=== PATIENT | female | born 1955 | race Caucasian/White ===

== ENCOUNTER 2016-07-17 09:22 | Emergency (ER) | payer BC ==
[~2016-07-17] VITALS: Ht 175.3 cm; Wt 74.8 kg
[~2016-07-17 09:22] MED LIST: ASPI325T4 PO; HYDR-965 PO
[2016-07-17 09:25] VITALS: BP 135/74
[2016-07-17] MEDS ORDERED: HYDR-79 PO (09:42)
[2016-07-17] MEDS ORDERED: AMOX1TAB61 PO (09:42)
--- NOTE | 2016-07-17 09:49 | PHYS DOC ---
Past Medical History Past Medical History: No Pertinent History Past Surgical History: , Other Additional Past Surgical Histo: left wrist fracture repair with pin placement Smoking: Cigarettes, 1 Pack Per Day Additional Information: 6-7 cigarettes daily Alcohol Use: None Additional Information: reports drinking 1-2 vodka drinks daily Drug Use: None Adult General Chief Complaint Chief Complaint: EARACHE/EAR PAIN [facility] HPI Patient is a pleasant 61-year-old female with no major medical problems who complains of left ear pain for last 2 weeks. Patient began having pain 2 weeks ago was seen at urgent care and diagnosed with a cerumen impaction which they were not able to do anything specific for her for last several weeks and working with [id number] remedies to try to remove the wax from her ear. The pain in her left ear is gotten progressively worse describes a throbbing worse with moving her jaw or yawning. She has had some URI symptoms but no sinusitis no sore throat or cough. Patient has had some mild hearing loss secondary to fullness in her ear. She does smoke she is not allergic to any medications she's had no trauma to her urine does not swim. Review of Systems Review of Systems Constitutional: Denies fever or chills [] Eyes: Denies change in visual acuity, redness, or eye pain [] HENT: Mild nasal congestion Respiratory: Denies cough or shortness of breath [] Cardiovascular: No additional information not addressed in HPI [] GI: Denies abdominal pain, nausea, vomiting, bloody stools or diarrhea [] : Denies dysuria or hematuria [] Musculoskeletal: Denies back pain or joint pain [] Integument: Denies rash or skin lesions [] Neurologic: Denies headache, focal weakness or sensory changes [] Endocrine: Denies polyuria or polydipsia [] Allergies Allergies Allergies Coded Allergies Type Severity Reaction Last Updated Verified No Known Drug Allergies 04/30/15 No Physical Exam Physical Exam Constitutional: Well developed, well nourished, no acute distress, non-toxic appearance. [] HENT: Normocephalic, atraumatic, left TM demonstrated a bulging TM that is red and if there is effusion behind it, there is minimal erythema to the external canal there is no tenderness with movement of the external pinna or over the tragus Eyes: PERRLA, EOMI, conjunctiva normal, no discharge. [] Neck: Normal range of motion, no tenderness, supple, no stridor. [] Cardiovascular:Heart rate regular rhythm, no murmur [] Lungs & Thorax: Bilateral breath sounds clear to auscultation [] Skin: Warm, dry, no erythema, no rash. no Narayan sign Neurologic: Alert and oriented X 3, normal motor function, normal sensory function, no focal deficits noted. [] Psychologic: Affect normal, judgement normal, mood normal. [] Current Patient Data Vital Signs Vital Signs Date Time Temp Pulse Resp B/P (MAP) Pulse Ox O2 Delivery O2 Flow Rate FiO2 07/17/16 09:25 98.5 103 18 97 Room Air 98.5 EKG EKG [] Radiology/Procedures Radiology/Procedures [] Course & Med Decision Making Course & Med Decision Making Pertinent Labs and Imaging studies reviewed. (See chart for details) Reviewed nursing notes and vital signs. On arrival patient's pulse was 103 which is likely secondary to pain. Patient is no complaints of any other issues other than ear pain. No jaw pain or shortness of breath or arm pain doubt cardiac cause of symptoms. At this point time patient diagnosed with otitis media and a mild irritation to the external canal. There is minimal cerumen at this time noted on physical exam. Treatment will be with Augmentin, Vicoprofen follow-up with her primary care doctor for ENT evaluation if necessary. [] Impression: Left otitis media, otalgia Disposition: PCP follow-up 24-48 hours precautions given reasons to return given Dragon Disclaimer Dragon Disclaimer This electronic medical record was generated, in whole or in part, using a voice recognition dictation system. Departure Departure Impression: Primary Impression: Otalgia of left ear Additional Impression: Otitis media Disposition: HOME, SELF-CARE Condition: STABLE Patient Instructions: Otitis Media with Effusion, Otalgia Additional Instructions: Please return for any new or increasing symptoms, pain out of control not treated with prescriptions, fever greater than 102.2, drainage from the ear or questions or concerns. Scripts Hydrocodone/Ibuprofen (HYDROCODONE-IBUPROFEN 7.5-200 ) 1 Each Tablet 1 TAB PO PRN Q6HRS Y for PAIN for 5 Days, #14 TAB 0 Refills Prov: BRISA OTTO MD 07/17/16 Amoxicillin/Potassium Clav (AUGMENTIN 875-125 TABLET) 1 Each Tablet 1 TAB PO BID, #20 TAB Prov: BRISA OTTO MD 07/17/16 Problem Qualifiers BRISA OTTO MD July 17, 2016 09:49
== END 2016-07-17 09:46 | disposition home or self-care (01) ==
LOC: ER 09:22
DX: H66.92 Otitis media, unspecified, left ear (principal); F17.210 Nicotine dependence, cigarettes, uncomplicated; F10.10 Alcohol abuse, uncomplicated
CPT/HCPCS: 99283

== ENCOUNTER 2017-08-21 06:34 | Inpatient (IN) | payer SELFPAY, BC ==
[2017-08-21 06:59] LABS: ADD MAN DIFF? NO
[2017-08-21 07:01] LABS: BASO # 0.1 x10^3/uL (0.0-0.2); BASO % 1 % (0-3); EOS # 0.1 x10^3/uL (0.0-0.7); EOS % 3 % (0-3); HEMATOCRIT 40.5 % (36.0-47.0); HEMOGLOBIN 14.2 g/dL (12.0-15.5); LYMPH % 35 % (24-48); MEAN CORPUSCULAR HEMOGLOBIN 33 pg (25-35); MEAN CORPUSCULAR HGB CONC 35 g/dL (31-37); MEAN CORPUSCULAR VOLUME 95 fL (79-100); MONO # 0.5 x10^3/uL (0.0-1.1); MONO % 9 % (0-9); NEUT % 53 % (31-73); PLATELET COUNT 168 x10^3/uL (140-400); RED BLOOD COUNT 4.27 x10^6/uL (3.50-5.40); WHITE BLOOD COUNT 5.7 x10^3/uL (4.0-11.0)
[2017-08-21] MEDS: ASPIRIN CHEWABLE 81 MG TABLET. PO (07:08)
[2017-08-21 07:16] LABS: INR 1.2 (0.8-1.1); PROTHROMBIN TIME PATIENT 14.2 SEC (11.7-14.0)
[2017-08-21 07:17] LABS: BLOOD UREA NITROGEN 15 mg/dL (7-20); BUN/CREATININE RATIO 25 (6-20); CREATININE 0.6 mg/dL (0.6-1.0); GLUCOSE 120 mg/dL (70-99)
[2017-08-21 07:18] LABS: ANION GAP 10 (6-14); CARBON DIOXIDE 24 mmol/L (21-32); CHLORIDE 103 mmol/L (98-107); GFR 101.6; POTASSIUM 3.8 mmol/L (3.5-5.1); SODIUM 137 mmol/L (136-145)
[2017-08-21 07:24] LABS: ALBUMIN 3.7 g/dL (3.4-5.0); ALBUMIN/GLOBULIN RATIO 0.8 (1.0-1.7); ALK PHOS 96 U/L (46-116); ALT (SGPT) 43 U/L (14-59); AST (SGOT) 69 U/L (15-37); D-DIMER 0.82 ug/mlFEU (0.00-0.50); LIPASE 113 U/L (73-393); MAGNESIUM 1.7 mg/dL (1.8-2.4); TOTAL BILIRUBIN 1.2 mg/dL (0.2-1.0); TOTAL PROTEIN 8.2 g/dL (6.4-8.2)
[2017-08-21 07:27] LABS: TROPONINI < 0.017 ng/mL (0.000-0.055)
[2017-08-21 07:35] LABS: NT-PRO BNP 473 pg/mL (0-124)
[2017-08-21 07:35] LABS: CKMB INDEX 1.8 % (0-4); CKMB MASS 1.6 ng/mL (0.0-3.6); CREATINE KINASE 90 U/L (26-192)
[2017-08-21] MEDS: IOHEXOL 300 MG/ML 100ML VIAL. IV (08:00)
[2017-08-21] MEDS ORDERED: CONTRAST GIVEN. MC (08:00)
[2017-08-21 13:06] LABS: TROPONINI < 0.017 ng/mL (0.000-0.055)
[2017-08-21 15:57] LABS: CHOLESTEROL 187 mg/dL (0-200); CHOLESTEROL/HDL RATIO 3.5; HDLC 54 mg/dL (40-60); LDLC 123 mg/dL (0-100); NON-HDL CHOLESTEROL 133 mg/dL (0-129); TRIGLYCERIDES 51 mg/dL (0-150); VLDLC 10 mg/dL (0-40)
[2017-08-21 16:06] LABS: THYROID STIM HORMONE (TSH) 2.128 uIU/mL (0.358-3.74)
[2017-08-21] MEDS ORDERED: ALBUTEROL SULFATE 2.5 MG/3 ML NEBU. NEB (16:30)
[2017-08-21] MEDS: ACETAMINOPHEN 325 MG TABLET. PO (17:02)
[2017-08-21] MEDS: MAGNESIUM OXIDE 400 MG TABLET PO (17:02)
[2017-08-21] MEDS: FUROSEMIDE 20 MG TABLET PO (17:05)
[2017-08-21] MEDS ORDERED: LABETALOL 20 MG/4 ML DISP.SYRIN. IVP (17:45)
[2017-08-21] MEDS: FUROSEMIDE 20 MG/2 ML VIAL. IVP (18:30)
[2017-08-21] MEDS: IPRATRPIUM/ALBUTEROL 0.5/2.5MG 3 ML NEBU. NEB (19:39)
[2017-08-21] MEDS: ATORVASTATIN CALCIUM 20 MG TABLET PO (20:31)
[2017-08-21 20:42] LABS: BILIRUBIN,URINE NEGATIVE (NEG); CLARITY,URINE CLEAR; GLUCOSE,URINE NEGATIVE (NEG); NITRITE,URINE NEGATIVE (NEG); PROTEIN,URINE NEGATIVE (NEG-TRACE); UROBILINOGEN,URINE 0.2 mg/dL (0.2 mg/dL)
[2017-08-21 20:50] LABS: BACTERIA,URINE FEW /HPF (0-FEW); RBC,URINE 0 /HPF (0-2); SQUAMOUS EPITHELIAL CELL,UR FEW /LPF
[2017-08-21 20:51] LABS: COLOR,URINE STRAW
[2017-08-21] MEDS: ZOLPIDEM 5 MG TABLET. PO (22:43)
[2017-08-22] MEDS: IPRATRPIUM/ALBUTEROL 0.5/2.5MG 3 ML NEBU. NEB ×2 (08:25→11:59)
[2017-08-22] MEDS ORDERED: REGADENOSON 0.4 MG/5 ML DISP.SYRIN. IV (09:00)
[2017-08-22] MEDS: FUROSEMIDE 40 MG TABLET. PO (12:21)
[2017-08-22] MEDS: ASPIRIN ENTERIC COATED 81 MG TABLET.DR. PO (12:21)
[2017-08-22] MEDS: METOPROLOL TART IMMED RELEASE 25 MG TABLET. PO (12:23)
[2017-08-22] MEDS: ACETAMINOPHEN 325 MG TABLET. PO (13:26)
== END 2017-08-22 14:15 | disposition home or self-care (01) | DRG 299 ==
LOC: ER 06:34 → ED HOLD 09:25 → 2 NORTH 14:10
DX: I70.208 Unspecified atherosclerosis of native arteries of extremities, other extremity (principal); I50.31 Acute diastolic (congestive) heart failure; I05.0 Rheumatic mitral stenosis; F17.210 Nicotine dependence, cigarettes, uncomplicated; J44.9 Chronic obstructive pulmonary disease, unspecified; E78.5 Hyperlipidemia, unspecified; L92.8 Other granulomatous disorders of the skin and subcutaneous tissue; R91.1 Solitary pulmonary nodule; I27.29 Other secondary pulmonary hypertension; G25.81 Restless legs syndrome; Z71.6 Tobacco abuse counseling
CPT/HCPCS: 36415; 71045; 71275; 80053; 80061; 81001; 82553; 83690; 83735; 83880; 84443; 84484; 85025; 85379; 85610; 93005; 93306; 94640; 94760; 96374; 99285; 99285-25; A9500; J7620; Q9967

== ENCOUNTER 2017-09-18 23:43 | Emergency (ER) | payer SELFPAY | END 2017-09-19 03:15 | disposition E | LOC: ER 23:43 | DX: I46.9 Cardiac arrest, cause unspecified (principal); F10.10 Alcohol abuse, uncomplicated | CPT/HCPCS: 92950; 99291 ==